=== PATIENT | male | born 1950 | race African-American/Black ===

== ENCOUNTER → 2017-11-11 | Outpatient (CLI) | payer MEDICARE ==
--- NOTE | 2017-11-11 12:53 | RADIOLOGY REPORT (SQ) ---
EXAM DESCRIPTION: U/S ABD AORTIC SCREENING COMPLETED DATE/TIME: 11/11/2017 11:39 am REASON FOR STUDY: Z13.6 ENCOUNTER FOR SCREENING FOR CARDIOVASCULAR DISORDERS Z12.2 ENCNTR SCR Z87.89 1 PERSONAL HISTORY OF NICOTINE DEPENDENCE Z13.6 ENCOUNTER FOR SCREENING FOR CARDIOVASCULAR DISORDER S Z12.2 ENCNTR SCREEN FOR MALIGNANT NEOPLASM OF RESPIRATORY OR COMPARISON: None. TECHNIQUE: Static and dynamic grayscale images acquired of the aorta and stored on PACs. Selected co yuly Doppler and spectral images recorded. LIMITATIONS: None. FINDINGS: AORTIC CALIBER MAXIMAL PROXIMAL: 2.9 cm. MID: 2.5 cm. DISTAL: 1.5 cm. ILIAC DIAMETER RIGHT: 0.7 cm. LEFT: 0.7 cm. OTHER: No other significant finding. 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 COMMENT: Aorta screening examinations categories: Negative - less than 3 cm. TECHNICAL DOCUMENTATION: JOB ID: [id number] [employer] All Rights Reserved
--- NOTE | 2017-11-11 15:38 | RADIOLOGY REPORT (SQ) ---
EXAM DESCRIPTION: CT LUNG CANCER SCREENING COMPLETED DATE/TIME: 11/11/2017 10:37 am REASON FOR STUDY: Z87.891 PERSONAL HISTORY OF NICOTINE DEPENDENCE Z87.891 PERSONAL HISTORY OF NICOT INE DEPENDENCE Z13.6 ENCOUNTER FOR SCREENING FOR CARDIOVASCULAR DISORDERS Z12.2 ENCNTR SCREEN FOR M ALIGNANT NEOPLASM OF RESPIRATORY OR Has the patient had a Chest CT scan within the past year? Was the patient offered tobacco cessation counseling? Was the patient engaged in shared decision making for this test? Does the patient have signs or symptoms of Lung Cancer? Is the patient a smoker? How many packs per year? How many years since quitting smoking? Patients age: COMPARISON: None. TECHNIQUE: Low Dose CT scan performed of the chest without intravenous contrast for purposes of scre ening for lung cancer. Images reviewed with lung, soft tissue and bone windows. Reconstructed coron al and sagittal MPR images reviewed. All images stored on PACS. All CT scanners at this facility use dose modulation, iterative reconstruction, and/or weight based d osing when appropriate to reduce radiation dose to as low as reasonably achievable (ALARA). [facility]: Dose Right [facility]: CareDose [facility]: Dose Right [facility]: Teradose 4D [facility]: Smart NXT-ID RADIATION DOSE: CT Rad equipment meets quality standard of care and radiation dose reduction techniq ues were employed. CTDIvol: 2.1 mGy. DLP: 84 mGy-cm. mGy. . LIMITATIONS: No technical limitations. FINDINGS: LUNG NODULES: Description: Solid well-circumscribed nodule left lower lobe. Size: 4 mm (3.8 x 4.7 mm) REMAINING LUNGS AND PLEURA: No pleural effusions or calcifications. No pneumothorax. Mild scarr ing. HILAR AND MEDIASTINAL STRUCTURES: No identified masses. No abnormal nodes. HEART AND VASCULAR STRUCTURES: No aortic aneurysm. No pericardial effusion. No cardiac devices. CORONARY ARTERY CALCIFICATIONS: Marked calcifications. UPPER ABDOMEN, THYROID, BONES, OTHER SOFT TISSUES: No significant findings. IMPRESSION: BENIGN FINDINGS IN THE LUNGS. NO OTHER CLINICALLY SIGNIFICANT/POTENTIALLY CLINICALLY SIGNIFICANT FINDINGS LUNGRADS: LUNGRADS: 2 BENIGN APPEARANCE OR BEHAVIOR. NODULES WITH A VERY LOW LIKELIHOOD OF BECOMING A CLINICALLY ACTIVE CANCER DUE TO SIZE OR LACK OF GROWTH. MODIFIER: NONE. RECOMMENDATION: Continue annual screening with LDCT in 12 months. COMMENT: CRITERIA: Solid nodule(s): < 6 mm; new < 4 mm. Part solid nodule(s): < 6 mm total diameter on baseline screening. Non solid nodule(s) (GGN): < 20 mm OR ? 20 and unchanged or slowly growing. Category 3 or 4 modules unchanged for ? 3 months. TECHNICAL DOCUMENTATION: JOB ID: [id number] Quality ID # [id number]: Final reports with documentation of one or more dose reduction techniques (e.g., Au tomated exposure control, adjustment of the mA and/or kV according to patient size, use of iterative reconstruction technique) 2011 [facility]
== END ==
LOC: RAD 11:58
PROVIDERS: ATTEND Family Medicine
DX: Z13.6 Encounter for screening for cardiovascular disorders (principal); Z12.2 Encounter for screening for malignant neoplasm of respiratory organs; Z87.891 Personal history of nicotine dependence; I71.9 Aortic aneurysm of unspecified site, without rupture
CPT/HCPCS: 76706; G0297

== ENCOUNTER → 2018-10-24 | Outpatient (CLI) | payer MEDICARE, BC ==
--- NOTE | 2018-10-26 10:21 | RADIOLOGY REPORT (SQ) ---
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 TECHNIQUE: Blood glucose level was verified. Above dose of FDG was injected intravenously. 2-D seg mented attenuation correction images were obtained from the base of the skull to the midthighs. Nonc ontrast CT images were obtained for attenuation correction and fusion with emission images. CT image s were performed without oral or intravenous contrast and are not sensitive for parenchymal lesions. A series of overlapping emission PET images were obtained. Images reviewed and manipulated at [facility] work station by the radiologist. Images stored on PACS. LIMITATIONS: None. FINDINGS: HEAD AND NECK: The right tongue base mass is present extending into the inferior right ton sillar fossa and right lateral lateral hypopharynx. The mass measures about 3 cm transverse by 1 cm in thickness, within a hip 11.4. No fatty atrophy of the right tongue. A right submandibular triangle 1.4 x 1 3 cm lymph node is present on axial image 35 with SUV of 8. CHEST: No areas of abnormal metabolic activity in the chest. ABDOMEN AND PELVIS: No areas of abnormal metabolic activity in the abdomen or pelvis. Expected physi ologic activity is present in the genitourinary system and bowel. PROXIMAL LOWER EXTREMITIES: No areas of abnormal metabolic activity in the soft tissues of the lower extremities. BONES: No abnormal metabolic activity in the visualized skeleton. ADDITIONAL CT FINDINGS: Heavy coronary artery calcification. Colonic diverticulosis without CT signs of acute diverticulitis. Minimal dependent atelectasis in the right posterior costophrenic sulcus OTHER: Liver background activity 2.3 SUV. Blood pool background activity 1.7 SUV IMPRESSION: Malignant right tongue base mass extending into the inferior tonsillar fossa and post or al lateral wall left hypopharynx Malignant right submandibular triangle lymph node TECHNICAL DOCUMENTATION: JOB ID: [id number] [employer]- All Rights Reserved Reading location - IP/workstation name: [email or web address]
== END ==
LOC: RAD 18:59
PROVIDERS: ATTEND Otolaryngology
DX: C02.8 Malignant neoplasm of overlapping sites of tongue (principal)
CPT/HCPCS: 78815; A9552

== ENCOUNTER → 2018-10-29 | Outpatient (CLI) | payer MEDICARE, BC ==
--- NOTE | 2018-10-29 10:15 | RADIOLOGY REPORT (SQ) ---
EXAM DESCRIPTION: CT SOFT TISSUE NECK WITH COMPLETED DATE/TIME: 10/29/2018 9:54 am REASON FOR STUDY: TONGUE CA C01 MALIGNANT NEOPLASM OF BASE OF TONGUE COMPARISON: PET-CT 10/24/2018 TECHNIQUE: Post IV contrasted scanning from skull base through lung apices with review of bone, soft tissue and lung windows. Reconstructed coronal and sagittal MPR images reviewed. All images stored on PACS. All CT scanners at this facility use dose modulation, iterative reconstruction, and/or weight based d osing when appropriate to reduce radiation dose to as low as reasonably achievable (ALARA). [facility]: Dose Right [facility]: CareDose [facility]: Dose Right [facility]: Teradose 4D [facility]: PiniOn CONTRAST TYPE AND DOSE: contrast/concentration: Isovue 350.00 mg/ml; Total Contrast Delivered: 75.0 ml; Total Saline Delivered: 55.0 ml RENAL FUNCTION: Creatinine 1.0 RADIATION DOSE: 17 mGy . LIMITATIONS: None. FINDINGS: SKULL BASE: Intact. MAJOR SALIVARY GLANDS: No solid or cystic masses. No inflammatory changes. LYMPHADENOPATHY: 1.6 x 1.6 cm right submandibular triangle lymph node is present on axial image 50, t his was metabolically active on PET-CT 10/14/2018, and is unchanged in size accounting for differences in technique. MUCOSAL MASSES OR ASYMMETRY: Diffuse abnormal mucosal thickening is present throughout the right tong ue base, and extending up into the right tonsillar fossa and rightward half of the soft palate superi mendez. Overall tumor measures at least 4 cm transverse and 4 cm craniocaudad, about 1 cm in thickness . LARYNX/CORDS: No abnormal findings. VASCULAR STRUCTURES: The major vessels are patent. LUNG APICES: Clear. BONES: Intact. THYROID: Normal size. No masses. PARANASAL SINUSES: Clear. OTHER: No other significant finding. IMPRESSION: Right tongue base mucosal mass extending into the rightward tonsillar fossa and soft sof t palate. Enlarged right submandibular triangle lymph node. TECHNICAL DOCUMENTATION: JOB ID: [id number] Quality ID # [id number]: Final reports with documentation of one or more dose reduction techniques (e.g., Au tomated exposure control, adjustment of the mA and/or kV according to patient size, use of iterative reconstruction technique) 2010 [employer]- All Rights Reserved Reading location - IP/workstation name: [email or web address]
== END ==
LOC: RAD 09:44
PROVIDERS: ATTEND Internal Medicine
DX: C01 Malignant neoplasm of base of tongue (principal)
CPT/HCPCS: 70491

== ENCOUNTER 2018-11-11 06:47 | Day surgery (SDC) | payer MEDICARE, BC ==
[~2018-11-11 06:47] MED LIST: ACETAMINOPHEN 325 MG TABLET PO PRN; CEFAZOLIN 1 GM/D5W RTU 1 GM/50 ML RTUPB IV PRN
[2018-11-11] MEDS ORDERED: CEFAZOLIN 1 GM/D5W RTU 1 GM/50 ML RTUPB IV ONE (06:56)
[2018-11-11] MEDS ORDERED: LIDOCAINE 1%/EPINEPHRINE INJ 20 ML VIAL ONE (07:14)
[2018-11-11 07:15] LABS: HEMATOCRIT 40.6 % (37.9-51.0); HEMOGLOBIN 13.3 g/dL (13.5-17.0); MEAN CORPUSCULAR HEMOGLOBIN 30.3 pg (27.0-33.4); MEAN CORPUSCULAR HGB CONC 32.8 g/dL (32.0-36.0); MEAN CORPUSCULAR VOLUME 92 fl (80-97); PLATELET COUNT 302 10^3/uL (150-450); RED CELL DISTRIBUTION WIDTH 14.5 % (11.5-14.0); WHITE BLOOD COUNT 8.3 10^3/uL (4.0-10.5)
[2018-11-11 07:31] LABS: ALANINE AMINOTRANSFERASE 9 U/L (21-72); ALBUMIN 4.2 g/dL (3.5-5.0); ALKALINE PHOSPHATASE 42 U/L (38-126); AMYLASE 157 U/L (30-110); ANION GAP 13 (5-19); ASPARTATE AMINO TRANSFERASE 18 U/L (17-59); BILIRUBIN,DIRECT 0.4 mg/dL (0.0-0.4); BILIRUBIN,TOTAL 0.6 mg/dL (0.2-1.3); BLOOD UREA NITROGEN 13 mg/dL (7-20); CALCIUM 9.7 mg/dL (8.4-10.2); CARBON DIOXIDE 24 mmol/L (22-30); CHLORIDE 107 mmol/L (98-107); GLUCOSE 103 mg/dL (75-110); POTASSIUM 3.7 mmol/L (3.6-5.0); SODIUM 143.5 mmol/L (137-145); TOTAL PROTEIN 7.2 g/dL (6.3-8.2)
[2018-11-11] MEDS ORDERED: FENTANYL CITRATE INJ/PF 100 MCG/2 ML AMPUL ONE (09:01)
[2018-11-11] MEDS ORDERED: PROPOFOL INJ 200 MG/20 ML VIAL IV ONE (09:02)
[2018-11-11] MEDS ORDERED: MIDAZOLAM 2 MG/2 ML INJ ONE (09:02)
[2018-11-11] MEDS ORDERED: ONDANSETRON HCL INJ/PF 4 MG/2 ML SDV ONE (09:02)
[2018-11-11] MEDS ORDERED: MEPERIDINE HCL/PF INJ 25 MG/1 ML DISP.SYRIN IV PRN (09:34)
[2018-11-11] MEDS ORDERED: DIPHENHYDRAMINE HCL 50 MG/ML VIAL IV PRN (09:34)
[2018-11-11] MEDS ORDERED: FENTANYL CITRATE INJ/PF 100 MCG/2 ML AMPUL IV PRN ×2 (09:34)
[2018-11-11] MEDS ORDERED: PROMETHAZINE HCL INJ 25 MG/1 ML VIAL IV PRN (09:34)
--- NOTE | 2018-11-11 10:31 | Discharge Summary ---
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 Patient can follow-up with [facility] in 2 weeks. Referrals: DAYANARA CASTRO MD [Primary Care Provider] - Discharge Diet: As Tolerated Discharge Activity: Activity As Tolerated Home Care Assistance: None Needed Report the Following to Your Physician Immediately: Shortness of Breath, Increase in Pain, Fever over 101 Degrees
--- NOTE | 2018-11-11 10:39 | Operative Report ---
Operative Report DATE OF SURGERY: 11/11/18 PREOPERATIVE DIAGNOSIS: Squamous cell carcinoma floor of mouth POSTOPERATIVE DIAGNOSIS: Same OPERATION: 1. Focused ultrasound of the left neck. 2. Ultrasound directed insertion of single lumen Xdaaeh-y-Kflm catheter into the subclavian position. 3. Interpretation of intraoperative fluoroscopy. 4. Esophagogastroduodenoscopy. 4. Percutaneous endoscopic gastrostomy tube insertion SURGEON: BRENNA ROMAN ANESTHESIA: LMAC TISSUE REMOVED OR ALTERED: None COMPLICATIONS: None ESTIMATED BLOOD LOSS: Scant INTRAOPERATIVE FINDINGS: See below PROCEDURE: The patient was seen in the preop holding area where his was appreciated by anesthesia. We counseled the patient that in order to preserve his airway, the level of sedation may be carbonating stone cleaner than conventional use was induced, arms tucked to the side, left chest and neck prepped and draped in sterile fashion Surgical plan surgical timeout were conducted. We proceeded using focused ultrasound of the neck to localize the left internal jugular vein. Skin was anesthetized with 1% lidocaine with epinephrine. Micro needle and wire was threaded into the left internal jugular vein. A suitable site for placement of port was chosen in the left subclavian area. Skin was anesthetized with 1% lidocaine with epinephrine. 3 cm incision was made with a knife, subcutaneous pocket developed large enough to accommodate a single-chamber port. The catheter and port was then attached with the plastic ring, and the catheter tunneled between the 2 incisions using the metallic tunneling device. The micro wire was then switched over to a conventional guidewire using the micro-introducer sheath all under fluoroscopic guidance. The 9 Ukrainian dilator introducer sheath was threaded over the wire, wire and dilator removed, and catheter threaded into the left internal jugular vein and the strip away sheath removed all under fluoroscopic guidance. There was excellent aspiration of blood flow with heparinized saline through the left subclavian single-chamber port. There was no evidence of kinking of the catheter the tip of the catheter is in the superior vena cava right atrial junction. Hemostasis was excellent. Wounds closed with 3-0 Vicryl benzoin Steri-Strips. We now broke scrub, and arrange for upper endoscopy. The endoscopy team was present in the room. Again patient's level sedation was moderate given the fragility of the airway. The flexible pediatric upper endoscope was advanced to the oropharynx, through the esophagus down through the stomach into the duodenum. There was possible small polyp of the pyloric channel. There is no evidence of obstruction or bleeding. A suitable site for placement of the PEG was chosen just left of midline in the epigastrium. Skin was anesthetized with 1% plain lidocaine. 2 separate nicks were made in the skin and 2 separate attempts were made to thread the Jelco through the anterior abdominal wall through the stomach wall into the lumen of the stomach. This is made challenging because of the patient's strained heavy breathing despite close monitoring by anesthesia in the operating team. After the second attempt, we did have a Jelco tip in the lumen of the stomach. The green wire was advanced to the Jelco, and snared. The snare wire and scope were brought out of the patient's oropharynx, and a 20 Ukrainian Endo I pullout type feeding gastrostomy tube was threaded over the wire. The wire and PEG were pulled out through the patient's anterior abdominal wall such that the bolster was stuck in the lumen of the stomach. The markings on the skin were approximately 3 cm from the bolster. Adapter and flange applied to the feeding tube. Repeat upper endoscopy by Dr. Roman performed uneventfully demonstrated the feeding tube to be in good position. There was some bleeding around the feeding tube which abated after gentle traction. We did not see evidence of hematoma or ongoing bleeding and felt that the source at the puncture site was eating. The stomach was decompressed as was the esophagus and oropharynx upon extraction of the upper endoscope. Benzoin Steri-Strips placed around the first stab wound on the anterior abdominal wall. Appropriate tension on the bolster checked. 4 x 4's applied. Patient tolerated procedure well, taken to recovery in stable condition. Portable upright chest x-ray pending at time dictation.
[2018-11-11] MEDS ORDERED: OXYCODONE-ACETAMINOPHEN 5-325 MG TABLET ONE (11:15)
--- NOTE | 2018-11-11 11:30 | RADIOLOGY REPORT (SQ) ---
EXAM DESCRIPTION: CHEST SINGLE VIEW COMPLETED DATE/TIME: 11/11/2018 10:55 am REASON FOR STUDY: Left Ij catheter COMPARISON: CT chest 11/11/2017 PET-CT 10/24/2018 EXAM PARAMETERS: NUMBER OF VIEWS: One view. TECHNIQUE: Single frontal radiographic view of the chest acquired. RADIATION DOSE: NA LIMITATIONS: None. FINDINGS: LUNGS AND PLEURA: No opacities, masses or pneumothorax. No pleural effusion. MEDIASTINUM AND HILAR STRUCTURES: No masses. Contour normal. HEART AND VASCULAR STRUCTURES: Heart normal in size. Normal vasculature. BONES: No acute findings. HARDWARE: Left-sided permanent central line tip superior vena cava. OTHER: No other significant finding. IMPRESSION: No pneumothorax post left permanent central line placement with the tip in the superior vena cava. No pulmonary infiltrates TECHNICAL DOCUMENTATION: JOB ID: [id number] [employer]- All Rights Reserved Reading location - IP/workstation name: [email or web address]
--- NOTE | 2018-11-11 12:41 | RADIOLOGY REPORT (SQ) ---
EXAM DESCRIPTION: FLUORO/CV PLACEMENT COMPLETED DATE/TIME: 11/11/2018 11:22 am REASON FOR STUDY: PORTACATH PLCMT LEFT SIDE ASST WITH FLUORO IN OR C01 MALIGNANT NEOPLASM OF BASE O F TONGUE COMPARISON: PET-CT 10/24/2018 FLUOROSCOPY TIME: 0.1 minutes 2 digital C-arm images saved to PACS. TECHNIQUE: Intra-operative images acquired during surgical procedure to evaluate progress. NUMBER OF IMAGES: 2 digital C-arm images LIMITATIONS: None. FINDINGS: Intra procedure fluoroscopy and imaging during placement of a left-sided permanent central line with the tip in the superior vena cava. Please see the operative report for further details IMPRESSION: Intra procedural imaging and fluoro COMMENT: Quality ID [id number]: Final reports for procedures using fluoroscopy that document radiation exp osure indices, or exposure time and number of fluorographic images (if radiation exposure indices are not available) Please consult full operative report of the attending physician for description of the procedure. TECHNICAL DOCUMENTATION: JOB ID: [id number] [employer]- All Rights Reserved Reading location - IP/workstation name: [email or web address]
[2018-11-11 12:54] VITALS: BP 150/87
== END 2018-11-11 12:25 | disposition home or self-care (01) ==
LOC: OROUT 06:47
PROVIDERS: ATTEND Surgery
DX: C01 Malignant neoplasm of base of tongue (principal); F17.210 Nicotine dependence, cigarettes, uncomplicated; F10.10 Alcohol abuse, uncomplicated; M54.9 Dorsalgia, unspecified; Z01.818 Encounter for other preprocedural examination; Z79.82 Long term (current) use of aspirin; Z79.4 Long term (current) use of insulin
CPT/HCPCS: 36561; 36415; 82150; 85027; 80076; 80048; 71045; 77001; C1788; J2250; J0690; J3010; J3490; A9270; J2405; J2704; J1642; 731

== ENCOUNTER 2019-01-13 12:10 | Outpatient (CLI) | payer BC, MEDICARE ==
[~2019-01-13 12:10] MED LIST changes: -ACETAMINOPHEN 325 MG TABLET PO PRN; -CEFAZOLIN 1 GM/D5W RTU 1 GM/50 ML RTUPB IV PRN; +CISPLATIN IV PRN; +DEXAMETHASONE SOD PHOSPHATE 10 MG in NORMAL SALINE 50 ML IV PRN; +FOSAPREPITANT DIMEGLUMINE 150 MG in NORMAL SALINE 150 ML IV PRN; +FUROSEMIDE INJ/PF 20 MG/2 ML SDV IV PRN; +NORMAL SALINE 500 ML IV PRN; +NORMAL SALINE IV PRN; +PALONOSETRON 0.25 MG/5 ML SDV IV PRN
[2019-01-13 14:46] VITALS: BP 126/60
== END 2019-01-13 16:01 | disposition home or self-care (01) ==
LOC: II 12:10 → 5TH 12:13 → II 16:01
PROVIDERS: ATTEND Internal Medicine
PROC: 3E04305 Introduction of Other Antineoplastic into Central Vein, Percutaneous Approach (ICD-10-PCS; principal; 2019-01-13)
PROC: 3E0433Z Introduction of Anti-inflammatory into Central Vein, Percutaneous Approach (ICD-10-PCS; 2019-01-13)
PROC: 3E043GC Introduction of Other Therapeutic Substance into Central Vein, Percutaneous Approach (ICD-10-PCS; 2019-01-13)
DX: Z51.11 Encounter for antineoplastic chemotherapy (principal); C01 Malignant neoplasm of base of tongue
CPT/HCPCS: 96413; 96367; 96374; 96375; 96360; 96361; J9060; J1940; J7040; J1100; J1453; J2469

== ENCOUNTER 2019-05-27 08:46 | Outpatient (CLI) | payer MEDICARE ==
[~2019-05-27 08:46] MED LIST changes: -CISPLATIN IV PRN; -DEXAMETHASONE SOD PHOSPHATE 10 MG in NORMAL SALINE 50 ML IV PRN; +FERUMOXYTOL 510 MG in NORMAL SALINE 100 ML IV PRN; -FOSAPREPITANT DIMEGLUMINE 150 MG in NORMAL SALINE 150 ML IV PRN; -FUROSEMIDE INJ/PF 20 MG/2 ML SDV IV PRN; +NORMAL SALINE 250 ML IV PRN; -NORMAL SALINE 500 ML IV PRN; -NORMAL SALINE IV PRN; -PALONOSETRON 0.25 MG/5 ML SDV IV PRN
[2019-05-27 09:15] VITALS: BP 114/59
== END 2019-05-27 10:26 | disposition home or self-care (01) ==
LOC: II 08:46 → 5TH 08:47 → II 10:26
PROVIDERS: ATTEND Internal Medicine
PROC: 3E043GC Introduction of Other Therapeutic Substance into Central Vein, Percutaneous Approach (ICD-10-PCS; principal; 2019-05-27)
DX: D50.9 Iron deficiency anemia, unspecified (principal); K90.9 Intestinal malabsorption, unspecified
CPT/HCPCS: 96366; Q0138; J7050; J1642; 96365

== ENCOUNTER 2019-06-03 08:41 | Outpatient (CLI) | payer MEDICARE ==
[~2019-06-03 08:41] MED LIST changes: +FERUMOXYTOL (NON-ESRD) 510 MG/NS 100 ML IV PRN; -FERUMOXYTOL 510 MG in NORMAL SALINE 100 ML IV PRN
[2019-06-03 08:59] VITALS: BP 119/65
== END 2019-06-03 10:30 | disposition home or self-care (01) ==
LOC: II 08:41 → 5TH 08:42 → II 10:30
PROVIDERS: ATTEND Internal Medicine
PROC: 3E043GC Introduction of Other Therapeutic Substance into Central Vein, Percutaneous Approach (ICD-10-PCS; principal; 2019-06-03)
DX: D50.9 Iron deficiency anemia, unspecified (principal); K90.9 Intestinal malabsorption, unspecified
CPT/HCPCS: 96365; Q0138; J7050; J1642